=== PATIENT | male | born 1950 | race Hispanic/Latino ===

== ENCOUNTER 2017-06-07 11:19 | Day surgery (SDC) | payer MEDICARE ==
[2017-06-07 11:36] VITALS: BMI 25.1
[2017-06-07 12:15] LABS: POTASSIUM 4.6 mmol/L (3.6-5.2)
[2017-06-07 12:19] LABS: CALCIUM 9.4 mg/dl (8.6-10.4)
[2017-06-07 12:48] VITALS: O2SAT 100
[2017-06-07] MEDS ORDERED: Lactated Ringer's 1,000 ML IV ONE (15:10)
[2017-06-07] MEDS ORDERED: Oxycodone/Acetaminophen 5/325 mg Tab PO PRN (15:18)
[2017-06-07] MEDS ORDERED: cefTRIAXone IV 1 gm in Dextros 50 ML IVPB ONE (15:19)
[2017-06-07] MEDS ORDERED: Midazolam 2 MG/2 ML VIAL ONE (15:29)
[2017-06-07] MEDS ORDERED: Propofol 10 mg/ml Inj (20 ML) ONE (15:45)
[2017-06-07] MEDS ORDERED: HYDROmorphone 0.5 mg/0.5 ml ISec IVP PRN (15:48)
[2017-06-07 16:59] VITALS: RESP 18; TEMP 97.8
[2017-06-07 17:43] VITALS: BP 122/56; PULSE 63
--- NOTE | 2017-06-15 10:56 | CARD ---
APPROVED REPORT EKG Measurement Heart [id number] MT [id number] <Conclusion> Normal sinus rhythm Nonspecific T wave abnormality Abnormal ECG
--- NOTE | 2017-06-28 08:36 | OP ---
PROCEDURE DATE: UROLOGY OPERATIVE REPORT PREOPERATIVE DIAGNOSES: Elevated prostate specific antigen, voiding dysfunction, urinary retention, azotemia, renal failure, and hydronephrosis. POSTOPERATIVE DIAGNOSES: Elevated prostate specific antigen, voiding dysfunction, urinary retention, azotemia, renal failure, and hydronephrosis. PROCEDURES: Transrectal ultrasound of the prostate and ultrasound-guided prostate biopsy. SURGEON: Eugene Rodriguez MD ESTIMATED BLOOD LOSS: Less than 10 mL. COMPLICATIONS: There were no complications. SPECIMEN: Prostate core. Multiple cores were taken and saved. DRAIN: Prater catheter, which he already has. FINDINGS: The prostate itself is significantly abnormal. By ultrasound criteria and digital rectal exam shows diffuse firm hard disease. We took multiple biopsies. At the termination of the procedure, the patient's blood loss is minimal and there is a Prater catheter in place. INDICATIONS: See history and physical for further details for the above procedure. Elevated PSA, voiding dysfunction, rock hard prostate, azotemia, renal failure and we discussed options and he is here now for the above procedure. DESCRIPTION OF PROCEDURE: After obtaining informed consent, the patient was placed on the table. Routine monitors were placed. Time-out was called. We confirmed the patient positioning, etc. The patient was in decubitus position and probe inserted via the rectum. We took the pictures in the transverse and longitudinal view of the prostate. Prostate volume measures to be about 60 plus mL. There are interestingly no specific hypoechoic lesions. If the prostate itself on rectal examination before introducing the probe. Discussed the results with the patient. It is fairly firm throughout, but we do not any specific abnormalities. Took multiple pictures, transverse, longitudinal . We now began our random biopsy and resection in quadrants of left base, left mid, left apex, right base, right mid, right apex; a total of 2 cores were sent from each area; lateral medial, lateral medial, for a total of 12 cores sent down. We each time checked to make sure that we have good specimen. Overall, the patient tolerated this procedure well without complications. See the Urology admission history and physical. The plan is for outpatient for followup. Once we get the results, we will see the patient, but in the meantime, needs to leave the Prater catheter and then further plans will follow. Eugene Rodriguez MD [facility] # [id number]
--- NOTE | 2017-06-28 14:25 | OP ---
UROLOGY OPERATIVE REPORT PREOPERATIVE DIAGNOSES: Elevated prostate-specific antigen, urinary retention, voiding dysfunction, nocturia, renal failure, hydronephrosis. POSTOPERATIVE DIAGNOSES: Elevated prostate-specific antigen, urinary retention, voiding dysfunction, nocturia, renal failure, hydronephrosis. PROCEDURE: Transrectal ultrasound and ultrasound-guided prostate biopsy. SURGEON: Eugene Rodriguez MD COMPLICATIONS: There were no complications. BLOOD LOSS: Less than 10 mL. SPECIMENS SENT: Prostate cores. INDICATIONS: See history and physical for details. A very pleasant gentleman who was referred to me from Dr. Morales with elevated PSA, voiding dysfunction, urinary retention and he is now here for the further testing. DESCRIPTION OF PROCEDURE: After obtaining informed consent discussing options with the patient, risks, benefits, and treatment alternatives at great length, the patient was brought to the OR, placed on the table, routine monitors were placed. Time-out was called. We confirmed the patient positioning, etc. We now began, we inserted the probe via the rectum. We took pictures in transverse direction. After taking multiple pictures, longitudinal view, the prostate volume measured to be approximately . We now began our random biopsy and resection of left base, left mid, left apex, right base, right mid, right apex, total of 12 cores were sent. Post-biopsy rectal exam was within normal limits. The patient tolerated the procedure without complication. ADDENDUM: Further workup in terms of voiding dysfunction and urinary retention all to be discussed further. Eugene Rodriguez MD
== END 2017-06-07 17:40 | disposition home or self-care (01) ==
LOC: C.SDS 11:19
PROVIDERS: ATTEND Urology
DX: C61 Malignant neoplasm of prostate (principal); N13.30 Unspecified hydronephrosis; N19 Unspecified kidney failure
CPT/HCPCS: 36415; 55700; 80048; 88305; 88342; 93005; J0696; J1580; J7120